=== PATIENT | male | born 1945 | race African-American/Black ===

== ENCOUNTER 2016-08-25 15:49 | Emergency (ER) | payer OTHER ==
[~2016-08-25 15:49] MED LIST: ALTACE10 MG PO; C5 PO; CEFT5 PO; DSS PO; FOLIC PO; HALF81 PO; HUMULIN R1 ML SC; K-TABS10 MEQ PO; L20 PO; LANTUS SC; LEVOTHYROXIN50 MCG PO; LIPITOR40 PO; LOP25 PO; MTX2.5 PO; NEUR300 PO; NORV10 PO; PLAQ200B PO; TRADJENTA5 MG PO; Z300 PO; ZANTAC150 MG PO
[2016-08-25 16:37] LABS: BASOPHILS 0.1 %; BASOPHILS ABSOLUTE 0.01 10/3/uL (0.0-0.16); EOSINOPHILS 0.3 %; EOSINOPHILS ABSOLUTE 0.03 10/3/uL (0.0-0.53); HEMOGLOBIN 10.5 g/dL (13.6-17.8); IMMATURE GRANULOCYTES 0.1 %; IMMATURE GRANULOCYTES ABSOLUTE 0.01 10/3/uL (0.0-0.11); LYMPHOCYTES 12.7 %; LYMPHOCYTES ABSOLUTE 1.15 10/3/uL (0.67-4.30); MEAN CORPUSCULAR HEMOGLOB 23.1 pg (26.0-34.0); MEAN PLATELET VOLUME 11.5 fL (9.2-13.0); MONOCYTES 4.7 %; MONOCYTES ABSOLUTE 0.43 10/3/uL (0.21-1.20); NEUTROPHILS 82.1 %; NEUTROPHILS ABSOLUTE 7.44 10/3/uL (2.02-8.40); PLATELET COUNT 162 10/3/uL (150-400); RBC DISTRIBUTION WIDTH 16.3 % (12.0-16.0); RED CELL COUNT 4.55 10/6/uL (4.7-6.1)
[2016-08-25 16:38] LABS: ALLENS TEST Pos; BE (BASE EXCESS) 5.4 MEQ/L (0 +/- 2.5); CARBOXYHEMOGLOBIN 0.5 % (0-3); DEVICE TC & NRB; HCO3 (ACTUAL BICARBONATE) 32.7 MEQ/L (23-27); HEMOBLOGIN CONTENT 10.7 G/DL (14-18); INSTRUMENT SERIAL # 8087; METHEMOGLOBIN 0.4 % (0-3); O2 CONTENT 15.4 VOL% (18-24); OPERATOR ID 14335; PCO2 (CO2 TENSION) 63 MMHG (35-45); PO2 (O2 TENSION) 236 MMHG (79-93); SAMPLE Arterial; pH 7.34 (7.37-7.43)
[2016-08-25 16:38] LABS: ER CBC TAT 0 Hrs 14 Mins; HEMATOCRIT 33.7 % (40.0-51.0); MANUAL DIFF NO %; MEAN CORPUS HGB CONC 31.2 g/dL (32.0-36.0); MEAN CORPUSCULAR VOLUME 74.1 fL (80-100); WHITE BLOOD CELLS 9.1 10/3/uL (4.5-10.5)
[2016-08-25 16:46] LABS: A/G RATIO 0.4 (0.7-1.9); ALBUMIN 2.5 G/DL (3.5-5.0); ALKALINE PHOSPHATASE 88 U/L (45-117); CALCIUM, SERUM 8.8 MG/DL (8.5-10.4); CHLORIDE, SERUM 103 MMOL/L (96-112); CREATININE 0.61 MG/DL (0.70-1.30); GFR AFRICAN AMERICAN 115 ML/MIN (>=60); GFR NON AFRICAN AMERICAN 99 ML/MIN (>=60); GLOBULIN 5.8 G/DL (2.5-4.1); POTASSIUM, SERUM 4.6 MMOL/L (3.5-5.3); SGOT(AST) 20 U/L (5-40); SGPT(ALT) 25 U/L (5-65); SODIUM, SERUM 140 MMOL/L (135-148); TOTAL BILIRUBIN 0.3 MG/DL (0-1.2); TOTAL PROTEIN 8.3 G/DL (6.0-8.5)
[2016-08-25 16:47] LABS: BUN (BLOOD UREA NITROGEN) 14 MG/DL (6-23); CO2 (CARBON DIOXIDE) 31 MMOL/L (24-34); GLUCOSE, SERUM 187 MG/DL (60-99); PARTIAL THROMBO TIME 28.9 SEC (22.5-37.2)
[2016-08-25 16:48] LABS: INTERNATIONAL NORMAL RATI 1.3 UNITS (-)
[2016-08-25 16:57] LABS: ANISOCYTOSIS 1+ (5-10/OIF) (0-5/OIF); OVALOCYTES 1+ (3-10/OIF) (0-2/OIF); PLATELET ESTIMATE ADQ (ADEQUATE)
== END 2016-08-25 20:37 | disposition home or self-care (01) ==
LOC: ER 15:49
PROVIDERS: Emergency Medicine
DX: Z43.0 Encounter for attention to tracheostomy (principal); J44.9 Chronic obstructive pulmonary disease, unspecified; K21.9 Gastro-esophageal reflux disease without esophagitis; Z79.899 Other long term (current) drug therapy
CPT/HCPCS: 36600; 71010; 80053; 82805; 85025; 85610; 85730; 94640; 99284